=== PATIENT | female | born 1975 | race Hispanic/Latino ===

== ENCOUNTER 2019-08-26 20:30 | Emergency (ER) | payer OTHER, SELFPAY ==
[2019-08-26] MEDS ORDERED: Ondansetron ODT 4 MG TAB ONE (21:09)
[2019-08-26] MEDS ORDERED: Acetaminophen 500 MG TAB ONE (21:09)
[2019-08-26] MEDS ORDERED: Aspirin Chewable 81 MG TAB ONE (21:09)
[2019-08-26] MEDS ORDERED: Dexamethasone 10 MG/ML VIAL ONE (21:09)
--- NOTE | 2019-08-26 21:48 | RAD ---
Chest AP view INDICATION: Cough with fever COMPARISON: April 14, 2018 FINDINGS: Lungs: No definite confluent airspace opacity is evident. Cardiac silhouette: The cardiomediastinal silhouette appears within normal limits. Pulmonary vasculature: Normal Pleural spaces: No pleural effusion or pneumothorax is demonstrated. Upper abdomen: No abnormality seen. Osseous structures: No acute osseous abnormality. Additional findings: None. IMPRESSION: No acute cardiopulmonary abnormality.
== END 2019-08-26 22:40 | disposition home or self-care (01) ==
LOC: MADERS 20:30
DX: R50.9 Fever, unspecified (principal); R05 Cough; Z20.828 Contact with and (suspected) exposure to other viral communicable diseases
CPT/HCPCS: 71045; 94760; 96372; J1100; Q0162

== ENCOUNTER 2019-08-31 01:57 | Emergency (ER) | payer OTHER, SELFPAY ==
[2019-08-31 02:58] LABS: #Lymphocytes 0.9 thou/uL (1.20-3.40); #Monocytes 0.3 thou/uL (0.11-0.59); #Neutrophils 9.3 thou/uL (1.40-6.50); %Basophils 0.4 % (0.0-1.0); %Eosinophils 0.1 % (0.0-10.0); %Lymphocytes 8.1 % (21.0-51.0); %Monocytes 2.5 % (0.0-10.0); %Neutrophils 88.9 % (42.0-75.0); Hemoglobin 13.1 g/dL (12.0-16.0); Mean Corpuscular HGB CONC 32.7 g/dL (32.0-36.0); Mean Corpuscular Hemoglobin 28.4 pg (27.0-31.0); Mean Corpuscular Volume 86.8 fL (78.0-98.0); Mean Platelet Volume 6.7 fL (7.4-10.4); Platelet Count 300 thou/uL (130-400); RBC Distribution Width 12.2 % (11.5-14.5); Red Blood Cell (RBC) Count 4.61 mill/uL (4.20-5.40); White Blood Cell (WBC) Count 10.5 thou/uL (4.8-10.8)
[2019-08-31 03:05] LABS: BHCG - Serum Negative (NEGATIVE); Pregs Control Bar Appear? YES (CONTROL BAR)
[2019-08-31 03:06] LABS: Pregs Control Background? CLEAR/WHITE (CLR/WHITE)
[2019-08-31 03:18] LABS: ALT (SGPT) 59 U/L (8-55); AST (SGOT) 67 U/L (5-34); Albumin 3.7 g/dL (3.5-5.0); Alkaline Phosphatase 79 U/L (40-110); Anion Gap 17 mmol/L (10-20); BUN (Urea Nitrogen) 19 mg/dL (7.0-18.7); Bilirubin, Total 0.8 mg/dL (0.2-1.2); CK (CPK) 48 U/L (29-168); Calc. Creatinine Clearance 0 mL/min (70-130); Calcium 8.6 mg/dL (7.8-10.44); Carbon Dioxide 23 mmol/L (22-29); Chloride 103 mmol/L (98-107); Estimated GFR-MDRD 84; Globulin 4.1 g/dL (2.4-3.5); Glucose 149 mg/dL (70-105); Potassium 3.7 mmol/L (3.5-5.1); Protein, Total 7.8 g/dL (6.0-8.3); Sodium 139 mmol/L (136-145)
[2019-08-31] MEDS ORDERED: Azithromycin 500 MG VIAL ONE (03:27)
[2019-08-31] MEDS ORDERED: cefTRIAXone\\ROCEPHIN 2 GM VIAL ONE (03:27)
[2019-08-31] MEDS ORDERED: Sodium Chloride 0.9% 250 ML 250 ML ONE (03:28)
--- NOTE | 2019-08-31 07:48 | RAD ---
EXAM: Single view of the chest HISTORY: Sore throat and dyspnea COMPARISON: 08/26/2019 FINDINGS: Single view of the chest shows a normal sized cardiomediastinal silhouette. There may be fung btle multifocal peripheral opacities in the lungs. The bones are unremarkable. IMPRESSION: Possible subtle multifocal infiltrates
== END 2019-08-31 04:32 | disposition short-term general hospital (02) ==
LOC: MADERS 01:57
DX: J18.9 Pneumonia, unspecified organism (principal); Z20.828 Contact with and (suspected) exposure to other viral communicable diseases
CPT/HCPCS: 71045; 80053; 82550; 83605; 83880; 84484; 84703; 85025; 86140; 94760; 96365; 96375; J0456; J0696; J7050

== ENCOUNTER 2021-01-04 18:56 | Emergency (ER) | payer OTHER ==
[2021-01-04] MEDS ORDERED: Orphenadrine Citrate 60 MG/2 ML VIAL ONE (19:49)
[2021-01-04 20:15] LABS: Bilirubin Negative (Negative); Blood, Urine Trace (Negative); Glucose, Urine (Dipstick) Negative (Negative); Ketone, Urine Negative (Negative); Leukocyte Moderate (Negative); Nitrite Negative (Negative); Protein, Urine (Dipstick) Negative (Neg-Trace); Specific Gravity, Urine 1.025 (1.005-1.030); Urobilinogen 0.2 mg/dL (Less than 2); pH, Urine 5.5 (5.0-9.0)
[2021-01-04 20:17] LABS: Clarity Hazy (Clear)
[2021-01-04 20:19] LABS: Pregnancy Test - Urine (BHCG) Negative (Negative); Pregu Control Background? CLEAR/WHITE (CLR/WHITE); Pregu Control Bar Appear? YES (CONTROL BAR); Specific Gravity 1.024 (1.002-1.036)
[2021-01-04] MEDS ORDERED: Cephalexin 500 MG CAP ONE (20:23)
[2021-01-04 20:29] LABS: Bacteria/HPF Rare-Few HPF (None Seen); Mucous/LPF 2+ LPF (<2+); RBC/HPF None Seen HPF (0-3); Transitional Epithelial 0-3 HPF (None Seen)
== END 2021-01-04 20:55 | disposition home or self-care (01) ==
LOC: MADERS 18:56
DX: N39.0 Urinary tract infection, site not specified (principal); M54.50 Low back pain, unspecified
CPT/HCPCS: 72100; 81003; 81015; 81025; 96372; J2360